=== PATIENT | male | born 1980 | race African-American/Black ===

== ENCOUNTER 2020-08-30 05:24 | Emergency (ER) | payer SELFPAY ==
[~2020-08-30] VITALS: Ht 175.3 cm; Wt 77.0 kg
[2020-08-30 06:56] LABS: HEMATOCRIT 41.4 % (39.0-50.0); HEMOGLOBIN 13.5 g/dl (14.0-18.0); IMMATURE GRANULOCYTES 0.5 % (0.0-5.0); MEAN CORPUSCULAR HGB 27.7 pG CALC (26.0-32.0); MEAN CORPUSCULAR HGB CONC 32.6 g/dL CAL (32.0-36.0); NEUT# 3.3 thou/uL (1.82-7.42); RED BLOOD COUNT 4.87 mill/uL (4.70-6.10); RED CELL DISTRI WIDTH 12.5 % (11.5-15.5)
[2020-08-30 07:11] LABS: ALBUMIN 4.2 g/dL (3.2-5.0); ALKALINE PHOSPHATASE 73 u/l (38-126); ANION GAP 14 (6-22 (CALC)); BILIRUBIN, TOTAL 0.3 mg/dL (0.0-1.4); BUN 12 mg/dL (9-20); BUN/CREATININE RATIO 11 (12-20 (CALC)); CARBON DIOXIDE 26 mmol/l (22-30); CHLORIDE 100 mmol/l (95-108); CREATININE 1.1 mg/dL (0.7-1.3); GFR > 60 ML/MIN (>=60 (CALC)); GFR FOR AFR.AMER. > 60 ML/MIN (>=60 (CALC)); LIPASE 32 u/l (23-300); POTASSIUM 4.2 mmol/l (3.5-5.1); SGOT/AST 31 u/l (17-59); SODIUM 136 mmol/l (137-146); TOTAL PROTEIN 7.3 g/dL (6.3-8.2)
[2020-08-30 07:30] LABS: URINE BILIRUBIN - DIPSTICK NEGATIVE (NEGATIVE); URINE BLOOD DIPSTICK NEGATIVE (NEGATIVE); URINE COLOR YELLOW; URINE GLUCOSE - DIPSTICK NEGATIVE (NEGATIVE); URINE KETONE NEGATIVE (NEGATIVE); URINE LEUK ESTERASE NEGATIVE (NEGATIVE); URINE NITRITE - DIPSTICK NEGATIVE (Negative); URINE PROTEIN - DIPSTICK NEGATIVE (NEG-TRACE); URINE SPECIFIC GRAVITY 1.015; URINE UROBILINOGEN - DIPSTICK 0.2 E.U./dL (0.2)
[2020-08-30] MEDS ORDERED: TAMSULOSIN0.4 MG PO (08:06)
[2020-08-30] MEDS ORDERED: HYDROCO/APAP1 TA9 PO (08:06)
[2020-08-30] MEDS ORDERED: ONDANSETRON4 MG PO (08:06)
[2020-08-30 08:20] VITALS: BP 120/78
== END 2020-08-30 08:45 | disposition home or self-care (01) | DRG 694 ==
LOC: ED 05:24
PROVIDERS: Emergency Medicine
DX: N13.2 Hydronephrosis with renal and ureteral calculous obstruction (principal); Z87.442 Personal history of urinary calculi

== ENCOUNTER 2020-09-01 00:04 | Emergency (ER) | payer SELFPAY ==
[~2020-09-01] VITALS: Ht 175.3 cm; Wt 75.0 kg
[~2020-09-01 00:04] MED LIST: HYDROCO/APAP1 TA9 PO; ONDANSETRON4 MG PO; TAMSULOSIN0.4 MG PO
[2020-09-01] MEDS ORDERED: TAMSULOSIN HCL0.4 MG PO (00:26)
[2020-09-01] MEDS ORDERED: LORTAB 5/3255 MG PO (00:27)
[2020-09-01 01:01] LABS: HEMATOCRIT 39.8 % (39.0-50.0); HEMOGLOBIN 12.9 g/dl (14.0-18.0); IMMATURE GRANULOCYTES 0.2 % (0.0-5.0); MEAN CELL VOLUME 85.6 fL CALC (80.0-100.0); MEAN CORPUSCULAR HGB 27.7 pG CALC (26.0-32.0); MEAN CORPUSCULAR HGB CONC 32.4 g/dL CAL (32.0-36.0); NEUT# 3.47 thou/uL (1.82-7.42); RED BLOOD COUNT 4.65 mill/uL (4.70-6.10); RED CELL DISTRI WIDTH 12.7 % (11.5-15.5)
[2020-09-01 01:15] LABS: AMYLASE 125 u/l (30-110); BILIRUBIN, TOTAL 0.3 mg/dL (0.0-1.4); CREATININE 1.8 mg/dL (0.7-1.3); POTASSIUM 3.8 mmol/l (3.5-5.1); TOTAL PROTEIN 7.3 g/dL (6.3-8.2)
[2020-09-01 01:47] LABS: LIPASE 38 u/l (23-300)
[2020-09-01] MEDS ORDERED: CIPROFLOXACN500 MG PO (04:41)
[2020-09-01 04:55] VITALS: BP 121/69
== END 2020-09-01 04:55 | disposition home or self-care (01) | DRG 694 ==
LOC: ED 00:04
PROVIDERS: Emergency Medicine
DX: N13.30 Unspecified hydronephrosis (principal); Z87.442 Personal history of urinary calculi

== ENCOUNTER 2021-05-08 06:15 | Emergency (ER) | payer SELFPAY ==
[~2021-05-08] VITALS: Ht 175.3 cm; Wt 86.0 kg
[~2021-05-08 06:15] MED LIST changes: +CIPROFLOXACN500 MG PO; +LORTAB 5/3255 MG PO; +TAMSULOSIN HCL0.4 MG PO
[2021-05-08 06:51] LABS: HEMATOCRIT 39.4 % (39.0-50.0); IMMATURE GRANULOCYTES 0.4 % (0.0-5.0); MEAN CELL VOLUME 86.4 fL CALC (80.0-100.0); MEAN CORPUSCULAR HGB 28.5 pG CALC (26.0-32.0); NEUT# 4.19 thou/uL (1.82-7.42); RED BLOOD COUNT 4.56 mill/uL (4.70-6.10)
[2021-05-08 07:02] LABS: ALBUMIN 4.3 g/dL (3.2-5.0); ALKALINE PHOSPHATASE 65 u/l (38-126); ANION GAP 10 (6-22 (CALC)); BILIRUBIN, TOTAL 0.4 mg/dL (0.0-1.4); BUN 18 mg/dL (9-20); BUN/CREATININE RATIO 16 (12-20 (CALC)); CARBON DIOXIDE 27 mmol/l (22-30); CHLORIDE 103 mmol/l (95-108); CREATININE 1.1 mg/dL (0.7-1.3); GFR > 60 ML/MIN (>=60 (CALC)); GFR FOR AFR.AMER. > 60 ML/MIN (>=60 (CALC)); LIPASE 50 u/l (23-300); POTASSIUM 3.9 mmol/l (3.5-5.1); SGOT/AST 29 u/l (17-59); SODIUM 137 mmol/l (137-146); TOTAL PROTEIN 7.6 g/dL (6.3-8.2)
[2021-05-08 07:13] LABS: URINE BILIRUBIN - DIPSTICK NEGATIVE (NEGATIVE); URINE BLOOD DIPSTICK SMALL (NEGATIVE); URINE COLOR YELLOW; URINE GLUCOSE - DIPSTICK NEGATIVE (NEGATIVE); URINE KETONE NEGATIVE (NEGATIVE); URINE LEUK ESTERASE NEGATIVE (NEGATIVE); URINE NITRITE - DIPSTICK NEGATIVE (Negative); URINE PH 7.5 (4.5-8.0); URINE PROTEIN - DIPSTICK NEGATIVE (NEG-TRACE); URINE UROBILINOGEN - DIPSTICK 0.2 E.U./dL (0.2)
[2021-05-08 07:22] LABS: URINE RBC 0-2 RBC/hpf (0-5)
[2021-05-08] MEDS ORDERED: TORADOL PO (07:52)
[2021-05-08] MEDS ORDERED: TAMSULOSIN0.4 MG PO (07:52)
[2021-05-08 07:55] VITALS: BP 141/66
== END 2021-05-08 07:59 | disposition home or self-care (01) | DRG 694 ==
LOC: ED 06:15
DX: N20.0 Calculus of kidney (principal); Z87.442 Personal history of urinary calculi